=== PATIENT | female | born 1980 | race Caucasian/White ===

== ENCOUNTER 2019-09-04 13:11 | Inpatient (IN) | payer BC ==
[~2019-09-04] VITALS: Ht 157.5 cm; Wt 72.6 kg
--- NOTE | 2019-09-04 13:35 | NUR ---
ED Nurse Note: patient walked into ED from home c/o pain on the lower abdomen and back pain, patient reports she got uterine fibroid embolization on 09/02/19. fredrickt reports the pain got worse since last night, reports 01/02. patient is alert awake x4 ambulatory breathing unlabored and even, speaking in full sentences.
--- NOTE | 2019-09-04 13:39 | Emergency Room Report ---
History of Present Illness General Chief Complaint: To Be Triaged Present Illness HPI 39 YO female presents to the ED complaining of 10 out of 10 in severity progressive pain in the low back as well as abdomen. Patient is status post fibroid surgery for Fibroid embolectomy surgery 2 days ago. Patient reports she has been taking prescribed oxycodone on without any relief of her symptoms. Patient reports pain medication began being ineffective last night. She also is reporting constipation and states that her last bowel movement was prior to surgery. She endorses not having a BM since. She reports palpation as well as going from laying to sitting position exacerbates her symptoms. She denies fevers or chills. She denies significant past medical history she denies any allergies. She is not taking any other medications other than those prescribed to her for pain. Allergies: Coded Allergies: No Known Allergies (Unverified , 09/04/19) Patient History Past Medical History: see triage record Past Surgical History: other - fibroid embolectomy Pertinent Family History: none Now: No Reviewed Nursing Documentation: PMH: Agreed; PSxH: Agreed Review of Systems All Other Systems: negative except mentioned in HPI Physical Exam Sp02 EP Interpretation: reviewed, normal General Appearance: no apparent distress, alert, GCS 15, non-toxic Head: normocephalic, atraumatic Eyes: bilateral eye normal inspection, bilateral eye PERRL ENT: hearing grossly normal, normal voice Neck: full range of motion Respiratory: lungs clear, normal breath sounds, speaking full sentences Cardiovascular #1: regular rate, rhythm Gastrointestinal: normal bowel sounds, soft, guarding - mild guarding on palpation of the lower abdomen, tenderness - midline lower abdomen, Genitourinary: normal inspection, no CVA tenderness Musculoskeletal: normal range of motion, gait/station normal, tender - ttp paraspinal and midline lumbar region. Neurologic: alert, motor strength/tone normal, oriented x3, sensory intact, responsive, speech normal Psychiatric: judgement/insight normal Skin: no rash, normal color Medical Decision Making PA Attestation Dr. Springer is my supervising Physician whom patient management has been discussed with. ER Course 39 YO female presents to the ED complaining of 10 out of 10 in severity progressive pain in the low back as well as abdomen. Patient is status post fibroid surgery for Fibroid embolectomy surgery 2 days ago. Patient reports she has been taking prescribed oxycodone on without any relief of her symptoms. Patient reports pain medication began being ineffective last night. She also is reporting constipation and states that her last bowel movement was prior to surgery. She endorses not having a BM since. She reports palpation as well as going from laying to sitting position exacerbates her symptoms. She denies fevers or chills. She denies significant past medical history she denies any allergies. She is not taking any other medications other than those prescribed to her for pain. Ddx considered but are not limited to Post-op infection, Obstruction, UTI, hemorrhage, Diverticulitis, acute appendicitis, renal stone just to name a few. Vital signs: was slightly tachycardic at 103bpm, Normal BP. She has low grade fever of 100.6 H&PE are most consistent with uncontrollable post-op pain ORDERS: -CBC: WBC's 18k -CMP: normal Cr. - renal function is appropriate -Lactic Acid : * Elevated 2.2 -Blood Cultures: Pending - UA: Occasional bacteria no inflammatory marker increase -Urine Hcg: Negative --CT Abd & Pelvis without contrast : Canceled- Per Dr. Tamez ( Pt's surgeon ) , He is specifically requesting CT abdomen and Pelvis with Angio-Contrast ED INTERVENTIONS: - Tylenol 500mg PO - fever of 100.6 on arrival -- 1000NS + remaining 30cc/kg Bolus - IV zofran 4mg. -4mg Morphine IV - Unasyn 3gm IV DISPOSITION: at this time pt. will be admitted to Dr. Shukla for Post - operative infection. Dr. Shukla agreed to admit the pt. and to continue pt. care management. Labs Test 09/04/19 13:43 09/04/19 16:00 White Blood Count 18.1 K/UL (4.8-10.8) Red Blood Count 4.50 M/UL (4.20-5.40) Hemoglobin 13.5 G/DL (12.0-16.0) Hematocrit 42.0 % (37.0-47.0) Mean Corpuscular Volume 93 FL (80-99) Mean Corpuscular Hemoglobin 29.9 PG (27.0-31.0) Mean Corpuscular Hemoglobin Concent 32.1 G/DL (32.0-36.0) Red Cell Distribution Width 12.3 % (11.6-14.8) Platelet Count 282 K/UL (150-450) Mean Platelet Volume 7.9 FL (6.5-10.1) Neutrophils (%) (Auto) % (45.0-75.0) Lymphocytes (%) (Auto) % (20.0-45.0) Monocytes (%) (Auto) % (1.0-10.0) Eosinophils (%) (Auto) % (0.0-3.0) Basophils (%) (Auto) % (0.0-2.0) Differential Total Cells Counted 100 Neutrophils % (Manual) 82 % (45-75) Lymphocytes % (Manual) 9 % (20-45) Monocytes % (Manual) 9 % (1-10) Eosinophils % (Manual) 0 % (0-3) Basophils % (Manual) 0 % (0-2) Band Neutrophils 0 % (0-8) Platelet Estimate Adequate Platelet Morphology Normal Red Blood Cell Morphology Normal Urine Color Pale yellow Urine Appearance Clear Urine pH 7 (4.5-8.0) Urine Specific [place] 1.005 (1.005-1.035) Urine Protein 1+ (NEGATIVE) Urine Glucose (UA) 2+ (NEGATIVE) Urine Ketones Negative (NEGATIVE) Urine Blood 1+ (NEGATIVE) Urine Nitrite Negative (NEGATIVE) Urine Bilirubin Negative (NEGATIVE) Urine Urobilinogen Normal MG/DL (0.0-1.0) Urine Leukocyte Esterase Negative (NEGATIVE) Urine RBC 2-4 /HPF (0 - 2) Urine WBC 2-4 /HPF (0 - 2) Urine Squamous Epithelial Cells Few /LPF (NONE/OCC) Urine Bacteria Occasional /HPF (NONE) Urine HCG, Qualitative Negative (NEGATIVE) Sodium Level 135 MMOL/L (136-145) Potassium Level 4.2 MMOL/L (3.5-5.1) Chloride Level 97 MMOL/L (98-107) Carbon Dioxide Level 26 MMOL/L (21-32) Anion Gap 12 mmol/L (5-15) Blood Urea Nitrogen 3 mg/dL (7-18) Creatinine 0.9 MG/DL (0.55-1.30) Estimat Glomerular Filtration Rate > 60 mL/min (>60) Glucose Level 206 MG/DL (74-106) Calcium Level 9.9 MG/DL (8.5-10.1) Lactic Acid Level 1.80 mmol/L (0.66-2.22) CT/MRI/US Diagnostic Results CT/MRI/US Diagnostic Results : Impression "IMPRESSION: Abdominal aorta within limits without aneurysm or dissection. The celiac, SMA, renal arteries and ROMULO fill with contrast expected. Truncated, tapered appearance of the right internal iliac artery suggested approximately 3.5 cm from its origin axial 240 and coronal 99. 14 cm heterogeneous lesion in the lower abdomen and pelvis containing branching air and areas of faint high density may represent uterine fibroid and possible recent embolization, correlate with history. " Per official radiology report- Please see report for specific details. Disposition: ADMITTED INPATIENT Condition: Serious Aleta Fuchs Sep 04, 2019 13:39
[2019-09-04] MEDS ORDERED: Acetaminophen 500mg (ES) tab ORAL ONE (13:45)
[2019-09-04 13:58] VITALS: BP 125/106
--- NOTE | 2019-09-04 14:00 | Emergency Room Report ---
History of Present Illness General Chief Complaint: Abdominal Pain Source: Patient Present Illness Allergies: Coded Allergies: No Known Allergies (Unverified , 09/04/19) COVID-19 Screening Contact w/high risk pt: No Recent Travel to affected area: No Experienced COVID-19 symptoms?: No COVID-19 Testing performed AIR FILLER: No Patient History Now: No Nursing Documentation-[facility] Past Medical History: No History, Except For Physical Exam Vital Signs Date Time Temp Pulse Resp B/P (MAP) Pulse Ox O2 Delivery O2 Flow Rate FiO2 09/04/19 13:28 100.6 103 22 125/106 (112) 100 Room Air Medical Decision Making Diagnostic Impression: Primary Impression: Intractable abdominal pain ER Course Please refer to the initial note for the history exam and presentation I do agree with exam and work-up patient was evaluated by myself as well and does show significant discomfort to the Lower abdominal region Given the recent procedures performed imaging is obtained further blood work with pain medication initiated And patient will require further inpatient care Last Vital Signs Date Time Temp Pulse Resp B/P (MAP) Pulse Ox O2 Delivery O2 Flow Rate FiO2 09/04/19 13:58 100.6 102 22 125/106 100 Room Air Status: improved Disposition: ADMITTED INPATIENT Condition: Serious Referrals: NON PHYSICIAN (PCP) Breann Springer DO Sep 04, 2019 14:00
[2019-09-04] MEDS: Morphine Sulfate 4mg/ml Inj (IV USE ONLY) IVP ONE ×2 (14:04→16:11)
[2019-09-04 14:22] LABS: ANION GAP 12 mmol/L (5-15); BLOOD UREA NITROGEN 3 mg/dL (7-18); CALCIUM 9.9 MG/DL (8.5-10.1); CARBON DIOXIDE 26 MMOL/L (21-32); CHLORIDE 97 MMOL/L (98-107); CREATININE 0.9 MG/DL (0.55-1.30); POTASSIUM 4.2 MMOL/L (3.5-5.1); SODIUM 135 MMOL/L (136-145)
[2019-09-04 14:24] LABS: HEMOGLOBIN 13.5 G/DL (12.0-16.0); MEAN CORPUSCULAR VOLUME 93 FL (80-99); PLATELET COUNT 282 K/UL (150-450); RED CELL DISTRIBUTION WIDTH 12.3 % (11.6-14.8); WHITE BLOOD COUNT 18.1 K/UL (4.8-10.8)
[2019-09-04 14:27] LABS: APPEARANCE,URINE CLEAR; BILIRUBIN, URINE NEGATIVE (NEGATIVE); COLOR,URINE PALE YELLOW; GLUCOSE, URINE (UA) 2+ (NEGATIVE); KETONES,URINE NEGATIVE (NEGATIVE); LEUKOCYTE ESTERASE ,URINE NEGATIVE (NEGATIVE); NITRITE,URINE NEGATIVE (NEGATIVE); PH,URINE 7 (4.5-8.0); PROTEIN,URINE 1+ (NEGATIVE); UROBILINOGEN,URINE NORMAL MG/DL (0.0-1.0)
--- NOTE | 2019-09-04 14:37 | NUR ---
Todd youssef in EDM - 09/04/19 at 1438 by BRITTA ED Nurse Note: patient taken to CT scan
[2019-09-04] MEDS ORDERED: Sodium Chloride 2,200 ML IVLG ONE (14:45)
[2019-09-04] MEDS ORDERED: Omnipaque 350 100ml vial INJ PRN (14:45)
[2019-09-04] MEDS ORDERED: Ampicillin/Sulbactam Sod 3 GM in NS 110 ML IV ONE (14:45)
[2019-09-04] MEDS ORDERED: no home meds (14:54)
--- NOTE | 2019-09-04 15:49 | NUR ---
ED Nurse Note: patient taken to CT scan
[2019-09-04] MEDS ORDERED: Morphine Sulfate 4mg/ml Inj (IV USE ONLY) ONE (16:10)
--- NOTE | 2019-09-04 16:41 | NUR ---
ED Nurse Note: patient taken back from CT scan
--- NOTE | 2019-09-04 17:25 | NUR ---
ED Nurse Note: patient taken to 3E in wheelchair with Demetrio Turpin with all of her belongings. report given to Mady WHITLOCK.
[2019-09-04 17:48] VITALS: BP 144/93
--- NOTE | 2019-09-04 17:50 | NUR ---
NURSE NOTES: I received telephone report from KAMLESH Feldman from ED; patient awake, alert x4; on room air, no sing of distress and shortness of breath; no sing of chest pain; IV LAC and RAC 20G flushes well; belongings listed and crossed matched; side rials up x2, breaks engaged, bed at lowest position, call light within reach; will keep monitoring.
--- NOTE | 2019-09-04 17:53 | NUR ---
NURSE NOTES: I received order from MD Turner; order carried out as order given;
--- NOTE | 2019-09-04 17:56 | Diagnostic Imaging Report ---
History: PAIN Exam: CTA ABDOMEN + PELVIS With Contrast MIP images obtained Technique more: CTDI is 7.30 mGy and DLP is 407.70 mGy-cm. Technique more: One or more of the following dose reduction techniques were used: automated exposure control, adjustment of the mA and/or kV according to patient size, use of iterative reconstruction technique. Comparison: FINDINGS: Lung bases are clear. Abdominal aorta within limits without aneurysm or dissection. The celiac, SMA, renal arteries and ROMULO fill with contrast expected. Incidental note of a retroaortic left renal vein. The bilateral common and external iliacs are patent. Left internal iliac appears patent. Truncated, tapered appearance of the right internal iliac artery suggested approximately 3.5 cm from its origin axial 240 and coronal 99. 14 cm heterogeneous lesion in the lower abdomen and pelvis containing branching air and areas of faint high density may represent uterine fibroid, correlate with history. Abdominal solid organs and abdominal aorta appear within limits on early arterial phase imaging. No bowel dilation or free air. Normal caliber appendix without secondary signs. No free fluid. IMPRESSION: Abdominal aorta within limits without aneurysm or dissection. The celiac, SMA, renal arteries and ROMULO fill with contrast expected. Truncated, tapered appearance of the right internal iliac artery suggested approximately 3.5 cm from its origin axial 240 and coronal 99. 14 cm heterogeneous lesion in the lower abdomen and pelvis containing branching air and areas of faint high density may represent uterine fibroid and possible recent embolization, correlate with history.
--- NOTE | 2019-09-04 18:08 | NUR ---
NURSE NOTES: I communicated MD Shukla to get order for antibiotics for this patient; waiting for order.
--- NOTE | 2019-09-04 18:13 | NUR ---
NURSE NOTES: Order received from MD Shukla; carried out as order given;
--- NOTE | 2019-09-04 19:20 | NUR ---
HAND-OFF: Report given to KAMLESH Nguyen. Plan of care endorsed to incoming nurse; Also admission intervations endorsed to incoming nurse;
--- NOTE | 2019-09-04 19:28 | NUR ---
NURSE NOTES: Report received from KAMLESH Valdes. Patient in stable condition. Denies any pain as of the moment. Pain well controlled with current pain management. Will follow up.
[2019-09-04 20:00] VITALS: BP 115/71
[2019-09-04] MEDS ORDERED: Docusate 100mg cap ORAL PRN (20:15)
[2019-09-04] MEDS: Potassium Chloride 20 MEQ in Dextrose 5%/Lactated Ringer's 1,000 ML IV SCH (20:18)
[2019-09-04] MEDS: Zoysn 3.37gm in NS 100ML IVPB SCH (22:55)
[2019-09-04 23:59] VITALS: BP 112/73
[2019-09-05] VITALS: BP 112/73
[2019-09-05] MEDS: Potassium Chloride 20 MEQ in Dextrose 5%/Lactated Ringer's 1,000 ML IV SCH ×4 (01:44→22:49)
[2019-09-05 04:00] VITALS: BP 108/65
[2019-09-05] MEDS: Zoysn 3.37gm in NS 100ML IVPB SCH ×3 (05:39→22:48)
[2019-09-05 07:13] LABS: ALANINE AMINOTRANSFERASE 18 U/L (12-78); ALBUMIN 3.6 G/DL (3.4-5.0); ALBUMIN/GLOBULIN RATIO 0.7 (1.0-2.7); ALKALINE PHOSPHATASE 70 U/L (46-116); ANION GAP 11 mmol/L (5-15); ASPARTATE AMINO TRANSFERASE 17 U/L (15-37); BILIRUBIN,TOTAL 1.1 MG/DL (0.2-1.0); BLOOD UREA NITROGEN 3 mg/dL (7-18); CALCIUM 9.5 MG/DL (8.5-10.1); CARBON DIOXIDE 27 MMOL/L (21-32); CHLORIDE 97 MMOL/L (98-107); POTASSIUM 4.3 MMOL/L (3.5-5.1); SODIUM 135 MMOL/L (136-145)
[2019-09-05 07:14] LABS: HEMATOCRIT 38.2 % (37.0-47.0); HEMOGLOBIN 12.7 G/DL (12.0-16.0); MEAN CORPUSCULAR VOLUME 91 FL (80-99); PLATELET COUNT 216 K/UL (150-450); RED BLOOD COUNT 4.22 M/UL (4.20-5.40); RED CELL DISTRIBUTION WIDTH 10.8 % (11.6-14.8); WHITE BLOOD COUNT 20.5 K/UL (4.8-10.8)
--- NOTE | 2019-09-05 07:14 | NUR ---
NURSE NOTES: Report received from Cory WHITLOCK, rounds made. Patient sleeping. IVF infusing to RAC. No distress on RA. Respirations even/unlabored. Bed in lowest position, call light in reach, will continue to monitor.
[2019-09-05 07:16] LABS: BILIRUBIN,DIRECT 0.2 MG/DL (0.0-0.3)
--- NOTE | 2019-09-05 07:23 | NUR ---
HAND-OFF: Report given to KAMLESH Barrios. Patient in stable condition.
--- NOTE | 2019-09-05 07:35 | History and Physical ---
Potter Billie TAX ASSISTANT 09/05/19 0735: History of Present Illness General Date patient seen: Sep 05, 2019 Time patient seen: 07:00 Reason for Hospitalization: post op pain Present Illness HPI 39 years old female with past medical history of uterine fibroids , undergone uterine embolization 3 days ago, on Friday 09/01 Patient presented to emergency room with intractable abdominal pain as well as the low back pain. Patient reported taking oral analgesic without significant relief. She also reported constipation , and her last bowel movement was prior to surgery. No fever or chills. No cough, no congestion. Upon evaluation patient had leukocytosis WBC 18.1, stable hemoglobin , hematocrit and platelet count. Urinalysis revealed borderline pyuria and just occasional bacteria. Urine test was negative. Stable electrolytes and renal parameters. Lactic acid 1.8. CT scan of the abdomen and pelvis revealed findings consistent with recent embolization. In emergency department patient was medicated for pain, started on the IV fluids, antiemetic and admitted to medical surgical floor for further management. Low grade fever overnight, currently afebrile, WBC with small trend up to 20 this am c/o intermittent abd pain, had very small BM this am Allergies: Coded Allergies: No Known Allergies (Unverified , 09/04/19) COVID-19 Screening Contact w/high risk pt: No Recent Travel to affected area: No Experienced COVID-19 symptoms?: No Medication History Miscellaneous Medications [no home meds], (Reported) Patient History Healthcare decision maker Resuscitation status Advanced Directive on File Review of Systems Constitutional: Reports: weakness Eye: Reports: no symptoms ENT: Reports: no symptoms Respiratory: Reports: no symptoms Cardiovascular: Reports: no symptoms Gastrointestinal: Reports: constipation Genitourinary: Reports: see HPI Musculoskeletal: Reports: back pain Skin: Reports: no symptoms Psychiatric: Reports: no symptoms Neurological: Reports: no symptoms Endocrine: Reports: no symptoms Hematologic/Lymphatic: Reports: no symptoms Physical Exam General Appearance: no apparent distress Lines, tubes and drains: peripheral HEENT: normocephalic, atraumatic, anicteric, mucous membranes moist, PERRL Neck: non-tender, supple Respiratory/Chest: chest wall non-tender, lungs clear, no respiratory distress , no accessory muscle use Cardiovascular/Chest: normal peripheral pulses, normal rate Abdomen: normal bowel sounds - tenderness on palpation right lwoer quadrant, no guarding, no rebound, Extremities: normal range of motion, non-tender, no calf tenderness, normal capillary refill 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6 102 22 125/106 100 Room Air 09/04/19 13:41 103 22 Room Air 09/04/19 13:28 100.6 103 22 125/106 (112) 100 Room Air Intake and Output 09/04/19 09/05/19 19:00 07:00 Intake Total 800 ml Balance 800 ml Intake Oral 800 ml # Voids 5 # Bowel Movements 3 Laboratory Tests Test 09/04/19 13:43 09/04/19 16:00 09/05/19 05:30 White Blood Count 18.1 K/UL (4.8-10.8) H 20.5 K/UL (4.8-10.8) H Red Blood Count 4.50 M/UL (4.20-5.40) 4.22 M/UL (4.20-5.40) Hemoglobin 13.5 G/DL (12.0-16.0) 12.7 G/DL (12.0-16.0) Hematocrit 42.0 % (37.0-47.0) 38.2 % (37.0-47.0) Mean Corpuscular Volume 93 FL (80-99) 91 FL (80-99) Mean Corpuscular Hemoglobin 29.9 PG (27.0-31.0) 30.2 PG (27.0-31.0) Mean Corpuscular Hemoglobin Concent 32.1 G/DL (32.0-36.0) 33.3 G/DL (32.0-36.0) Red Cell Distribution Width 12.3 % (11.6-14.8) 10.8 % (11.6-14.8) L Platelet Count 282 K/UL (150-450) 216 K/UL (150-450) Mean Platelet Volume 7.9 FL (6.5-10.1) 7.7 FL (6.5-10.1) Neutrophils (%) (Auto) % (45.0-75.0) % (45.0-75.0) Lymphocytes (%) (Auto) % (20.0-45.0) % (20.0-45.0) Monocytes (%) (Auto) % (1.0-10.0) % (1.0-10.0) Eosinophils (%) (Auto) % (0.0-3.0) % (0.0-3.0) Basophils (%) (Auto) % (0.0-2.0) % (0.0-2.0) Differential Total Cells Counted 100 Neutrophils % (Manual) 82 % (45-75) H Pending Lymphocytes % (Manual) 9 % (20-45) L Pending Monocytes % (Manual) 9 % (1-10) Eosinophils % (Manual) 0 % (0-3) Basophils % (Manual) 0 % (0-2) Band Neutrophils 0 % (0-8) Platelet Estimate Adequate Pending Platelet Morphology Normal Pending Red Blood Cell Morphology Normal Urine Color Pale yellow Urine Appearance Clear Urine pH 7 (4.5-8.0) Urine Specific [place] 1.005 (1.005-1.035) Urine Protein 1+ (NEGATIVE) H Urine Glucose (UA) 2+ (NEGATIVE) H Urine Ketones Negative (NEGATIVE) Urine Blood 1+ (NEGATIVE) H Urine Nitrite Negative (NEGATIVE) Urine Bilirubin Negative (NEGATIVE) Urine Urobilinogen Normal MG/DL (0.0-1.0) Urine Leukocyte Esterase Negative (NEGATIVE) Urine RBC 2-4 /HPF (0 - 2) H Urine WBC 2-4 /HPF (0 - 2) Urine Squamous Epithelial Cells Few /LPF (NONE/OCC) Urine Bacteria Occasional /HPF (NONE) Urine HCG, Qualitative Negative (NEGATIVE) Sodium Level 135 MMOL/L (136-145) L 135 MMOL/L (136-145) L Potassium Level 4.2 MMOL/L (3.5-5.1) 4.3 MMOL/L (3.5-5.1) Chloride Level 97 MMOL/L (98-107) L 97 MMOL/L (98-107) L Carbon Dioxide Level 26 MMOL/L (21-32) 27 MMOL/L (21-32) Anion Gap 12 mmol/L (5-15) 11 mmol/L (5-15) Blood Urea Nitrogen 3 mg/dL (7-18) L 3 mg/dL (7-18) L Creatinine 0.9 MG/DL (0.55-1.30) 1.0 MG/DL (0.55-1.30) Estimat Glomerular Filtration Rate > 60 mL/min (>60) > 60 mL/min (>60) Glucose Level 206 MG/DL (74-106) H 197 MG/DL (74-106) H Lactic Acid Level 2.20 mmol/L (0.4-2.0) H 1.80 mmol/L (0.66-2.22) Calcium Level 9.9 MG/DL (8.5-10.1) 9.5 MG/DL (8.5-10.1) Total Bilirubin 1.1 MG/DL (0.2-1.0) H Direct Bilirubin 0.2 MG/DL (0.0-0.3) Aspartate Amino Transf (AST/SGOT) 17 U/L (15-37) Alanine Aminotransferase (ALT/SGPT) 18 U/L (12-78) Alkaline Phosphatase 70 U/L (46-116) Total Protein 8.5 G/DL (6.4-8.2) H Albumin 3.6 G/DL (3.4-5.0) Globulin 4.9 g/dL Albumin/Globulin Ratio 0.7 (1.0-2.7) L Height (Feet): 5 Height (Inches): 2.00 Weight (Pounds): 160 Medications Current Medications Medications (Trade) Dose Ordered Sig/Dc Route PRN Reason Start Time Stop Time Status Last Admin Dose Admin Acetaminophen (Tylenol) 650 mg Q4H PRN ORAL Temp >100.5 09/04/19 23:30 10/04/19 23:29 09/04/19 23:35 Bisacodyl (Dulcolax) 10 mg ONCE RECTAL 09/04/19 20:30 12/03/19 20:29 09/04/19 20:33 Docusate Sodium (Colace) 200 mg Q8H PRN ORAL Constipation 09/04/19 20:15 10/04/19 20:14 09/04/19 23:48 Hydromorphone HCl (Dilaudid) 1 mg Q3H PRN IVP Mild Pain (Pain Scale 1-3) 09/04/19 18:00 09/11/19 17:59 Hydromorphone HCl (Dilaudid) 2 mg Q2H PRN IVP Severe Pain (Pain Scale 7-10) 09/04/19 18:00 09/11/19 17:59 09/05/19 04:40 Hydromorphone HCl (Dilaudid) 2 mg Q3H PRN IVP Moderate Pain (Pain Scale 4-6) 09/04/19 18:00 09/11/19 17:59 Iohexol (Omnipaque 350 100ml) 100 ml NOW PRN INJ Radiology Procedure 09/04/19 14:45 09/06/19 14:45 Ondansetron HCl (Zofran) 4 mg Q6H PRN IVP Nausea & Vomiting 09/04/19 18:00 10/04/19 17:59 Piperacillin Sod/ Tazobactam Sod 3.375 gm/Sodium Chloride 110 ml @ 27.5 mls/hr EVERY 8 HOURS IVPB 09/04/19 22:00 09/09/19 21:59 09/05/19 05:39 Potassium Chloride 20 meq/ Dextrose/Lactated Ringer's 1,010 ml @ 150 mls/hr Q6H44M IV 09/04/19 19:00 10/04/19 18:59 09/04/19 20:18 Assessment/Plan Assessment/Plan: ASSESSMENT Intractable abdominal pain s/p recent uterine artery embolization Uterine fibroids Leukocytosis Constipation PLAN OF CARE MS floor IVF empiric abx fup with cx trend WBC CT scan A/P stable CL diet advance tomorrow if stable pain management bowel regimen, will give lactulose x 1 a/emetic prn OOB as tolerated IS at the bedside supportive care case discussed and evaluated by supervising physician Valerio Ivy MD 09/05/19 1616: History of Present Illness General Reason for Hospitalization: post op pain Present Illness Allergies: Coded Allergies: No Known Allergies (Unverified , 09/04/19) Medication History Miscellaneous Medications [no home meds], (Reported) Assessment/Plan Assessment/Plan: Patient seen and examined with TAX ASSISTANT. Agree with above A&P as it reflects our joint deliberations. Billie Potter NP Sep 05, 2019 07:35 Valerio Ivy MD Sep 05, 2019 16:16
[2019-09-05 08:20] VITALS: BP 150/98
--- NOTE | 2019-09-05 09:15 | NUR ---
NURSE NOTES: Spoke to Dr. Jaeger regarding patient current status, reviewed labs, vitals, medications, diet. No further orders at this time.
--- NOTE | 2019-09-05 10:15 | NUR ---
NURSE NOTES: Spoke to Dr. Jaeger regarding patient current diet and tolerance, order received, okay for coffee and prune juice, patient updated, verbalized understanding.
[2019-09-05] MEDS ORDERED: Lactulose 20gm/30ml UDC ORAL SCH (10:30)
--- NOTE | 2019-09-05 10:41 | General Surgery Progress Note ---
General Surgery-Progress Note Subjective Day of Surgery: september 01 Procedure Performed uterine fibroid embolization Symptoms: improved, tolerating diet, voiding well, BM Objective Last 24 Hour Vital Signs Date Time Temp Pulse Resp B/P (MAP) Pulse Ox O2 Delivery O2 Flow Rate FiO2 09/05/19 08:20 98.7 117 22 150/98 (115) 98 09/05/19 05:10 98.6 09/05/19 04:00 98.6 93 18 108/65 (79) 100 09/05/19 00:10 Room Air 09/05/19 00:05 97.4 09/05/19 00:00 100.4 86 20 112/73 (86) 96 09/04/19 23:59 100.4 86 20 112/73 (86) 96 09/04/19 20:22 Room Air 09/04/19 20:00 98.9 109 20 115/71 (86) 99 09/04/19 17:48 98.6 144/93 (110) 100 09/04/19 17:27 100.0 102 22 125/106 100 Room Air 09/04/19 17:06 100.0 09/04/19 16:07 100.0 09/04/19 13:58 100.6 102 22 125/106 100 Room Air 09/04/19 13:41 103 22 Room Air 09/04/19 13:28 100.6 103 22 125/106 (112) 100 Room Air I&O Intake and Output 09/04/19 09/05/19 19:00 07:00 Intake Total 800 ml Balance 800 ml Intake Oral 800 ml # Voids 5 # Bowel Movements 3 Dressing: dry Wound: clean Drains: none Cardiovascular: RSR Respiratory: clear Abdomen: soft, flat, tenderness, present bowel sounds Extremities: no edema, no tenderness, no cyanosis Laboratory Tests Test 09/04/19 13:43 09/04/19 16:00 09/05/19 05:30 White Blood Count 18.1 K/UL (4.8-10.8) H 20.5 K/UL (4.8-10.8) H Red Blood Count 4.50 M/UL (4.20-5.40) 4.22 M/UL (4.20-5.40) Hemoglobin 13.5 G/DL (12.0-16.0) 12.7 G/DL (12.0-16.0) Hematocrit 42.0 % (37.0-47.0) 38.2 % (37.0-47.0) Mean Corpuscular Volume 93 FL (80-99) 91 FL (80-99) Mean Corpuscular Hemoglobin 29.9 PG (27.0-31.0) 30.2 PG (27.0-31.0) Mean Corpuscular Hemoglobin Concent 32.1 G/DL (32.0-36.0) 33.3 G/DL (32.0-36.0) Red Cell Distribution Width 12.3 % (11.6-14.8) 10.8 % (11.6-14.8) L Platelet Count 282 K/UL (150-450) 216 K/UL (150-450) Mean Platelet Volume 7.9 FL (6.5-10.1) 7.7 FL (6.5-10.1) Neutrophils (%) (Auto) % (45.0-75.0) % (45.0-75.0) Lymphocytes (%) (Auto) % (20.0-45.0) % (20.0-45.0) Monocytes (%) (Auto) % (1.0-10.0) % (1.0-10.0) Eosinophils (%) (Auto) % (0.0-3.0) % (0.0-3.0) Basophils (%) (Auto) % (0.0-2.0) % (0.0-2.0) Differential Total Cells Counted 100 Neutrophils % (Manual) 82 % (45-75) H Pending Lymphocytes % (Manual) 9 % (20-45) L Pending Monocytes % (Manual) 9 % (1-10) Eosinophils % (Manual) 0 % (0-3) Basophils % (Manual) 0 % (0-2) Band Neutrophils 0 % (0-8) Platelet Estimate Adequate Pending Platelet Morphology Normal Pending Red Blood Cell Morphology Normal Urine Color Pale yellow Urine Appearance Clear Urine pH 7 (4.5-8.0) Urine Specific [place] 1.005 (1.005-1.035) Urine Protein 1+ (NEGATIVE) H Urine Glucose (UA) 2+ (NEGATIVE) H Urine Ketones Negative (NEGATIVE) Urine Blood 1+ (NEGATIVE) H Urine Nitrite Negative (NEGATIVE) Urine Bilirubin Negative (NEGATIVE) Urine Urobilinogen Normal MG/DL (0.0-1.0) Urine Leukocyte Esterase Negative (NEGATIVE) Urine RBC 2-4 /HPF (0 - 2) H Urine WBC 2-4 /HPF (0 - 2) Urine Squamous Epithelial Cells Few /LPF (NONE/OCC) Urine Bacteria Occasional /HPF (NONE) Urine HCG, Qualitative Negative (NEGATIVE) Sodium Level 135 MMOL/L (136-145) L 135 MMOL/L (136-145) L Potassium Level 4.2 MMOL/L (3.5-5.1) 4.3 MMOL/L (3.5-5.1) Chloride Level 97 MMOL/L (98-107) L 97 MMOL/L (98-107) L Carbon Dioxide Level 26 MMOL/L (21-32) 27 MMOL/L (21-32) Anion Gap 12 mmol/L (5-15) 11 mmol/L (5-15) Blood Urea Nitrogen 3 mg/dL (7-18) L 3 mg/dL (7-18) L Creatinine 0.9 MG/DL (0.55-1.30) 1.0 MG/DL (0.55-1.30) Estimat Glomerular Filtration Rate > 60 mL/min (>60) > 60 mL/min (>60) Glucose Level 206 MG/DL (74-106) H 197 MG/DL (74-106) H Lactic Acid Level 2.20 mmol/L (0.4-2.0) H 1.80 mmol/L (0.66-2.22) Calcium Level 9.9 MG/DL (8.5-10.1) 9.5 MG/DL (8.5-10.1) Total Bilirubin 1.1 MG/DL (0.2-1.0) H Direct Bilirubin 0.2 MG/DL (0.0-0.3) Aspartate Amino Transf (AST/SGOT) 17 U/L (15-37) Alanine Aminotransferase (ALT/SGPT) 18 U/L (12-78) Alkaline Phosphatase 70 U/L (46-116) Total Protein 8.5 G/DL (6.4-8.2) H Albumin 3.6 G/DL (3.4-5.0) Globulin 4.9 g/dL Albumin/Globulin Ratio 0.7 (1.0-2.7) L Imaging likely post embolization syndrome, no signs of infection Plan Additional Comments patient still constipated, need laxative therapy. continue current pain control for today Casey Jaeger MD Sep 05, 2019 10:41
--- NOTE | 2019-09-05 11:36 | NUR ---
CASE MANAGEMENT: INITIAL REVIEW 39YR OLD MALE WALKED INTO ED FROM HOME CC: ABDOMINAL PAIN; S/P UTERINE FIBROID EMBOLIZATION 09/02/19 SI:INTRACTABLE ABDOMINAL PAIN 100.6 103 22 125/106 100% ON RA WBC 18.1 BG 206 LACTIC ACID 2.20 IS:IV NS BOLUS X1 IV MORPHINE SULFATE X1 IV ZOFRAN X1 TYLENOL PO X1 CTA Abdomen Pelvis w/Contrast: PAIN-Abdominal aorta within limits without aneurysm or dissection. \: [facility] UNIT DCP: HOME WHEN STABLE PLAN: CONTROL PAIN START ON CLEAR; ADVANCE TOLERATED [employer]OURAGE INCENTIVE SPIROMETER CASE MANAGEMENT: REVIEW 09/05/19 SI:INTRACTABLE ABDOMINAL PAIN 100.4 86 20 112/73 96% ON RA WBC 20.5 BG 197 T. PROTEIN 8.5 IS:IV ZOSYN TID IV KCL/D5/LR @150ML/HR TYLENOL PO Q4HR/PRN \: [facility] MED SURG UNIT DCP: HOME WHEN STABLE PLAN: CONTROL PAIN START ON CLEAR; ADVANCE TOLERATED ENCOURAGE INCENTIVE SPIROMETER
[2019-09-05 12:00] VITALS: BP 112/70
--- NOTE | 2019-09-05 12:45 | NUR ---
NURSE NOTES: Spoke to Dr. Jaeger regarding patient complains of pressure with voiding, vitals, activity level. No further orders. Encouraged IS, patient demonstrates correctly.
--- NOTE | 2019-09-05 14:23 | NUR ---
*-* INSURANCE *-* ALL CLINICALS AND REVIEWS HAVE BEEN FAXED TO: CARISSA ALLISON AUTH#[id number] [phone] F:[phone] Addendum: 09/08/19 at 1539 by ANYA MARQUEZ CM REFAXED
[2019-09-05] MEDS: HYDROmorphone 1mg/ml Carpuject IVP PRN ×2 (15:16→21:04)
[2019-09-05] MEDS ORDERED: Bisacodyl EC 5mg tab ORAL PRN (16:15)
[2019-09-05 16:31] VITALS: BP 113/71
--- NOTE | 2019-09-05 16:45 | NUR ---
NURSE NOTES: Dr. Ivy at bedside, discussed patient current status, vitals (temperature 102.2-99.4, HR 114-119), IVF/PO medications reviewed, BM x2 this shift (diarrheal), no further orders.
--- NOTE | 2019-09-05 17:00 | NUR ---
NURSE NOTES: Patient up ambulating in halls (twice this shift), gait steady/slow.
[2019-09-05] MEDS: Docusate 100mg cap ORAL SCH (17:50)
--- NOTE | 2019-09-05 18:00 | NUR ---
NURSE NOTES: Patient reports scant bleeding with voiding, provided rafael-pad, will endorse to next shift.
--- NOTE | 2019-09-05 19:19 | NUR ---
HAND-OFF: Report given to Gho RN, rounds made, patient stable.
--- NOTE | 2019-09-05 19:30 | NUR ---
NURSE NOTES: Receive a report from KAMLESH Barrios. Round is done. Pt is awake and alert. No acute distress noted but still noted lower abdominal pain. Pain medication will provide prn pain medication as ordered. Pt feels weak but no dizziness noted. Provide fall precautions. Call light within reach. Will continue to monitor.
[2019-09-05 20:00] VITALS: BP 109/73
--- NOTE | 2019-09-05 21:30 | NUR ---
NURSE NOTES: Pt had normal BM but still wants to have Bisacodyl suppository. BS increased. Noted pain and hard time to move. Assist to use bathroom. Call light within reach. Will continue to monitor.
[2019-09-06] VITALS: BP 117/75
[2019-09-06 04:00] VITALS: BP 104/66
[2019-09-06 06:01] LABS: HEMATOCRIT 33.4 % (37.0-47.0); HEMOGLOBIN 11.1 G/DL (12.0-16.0); MEAN CORPUSCULAR VOLUME 91 FL (80-99); PLATELET COUNT 204 K/UL (150-450); RED BLOOD COUNT 3.69 M/UL (4.20-5.40); RED CELL DISTRIBUTION WIDTH 10.5 % (11.6-14.8)
[2019-09-06 06:08] LABS: WHITE BLOOD COUNT 22.4 K/UL (4.8-10.8)
--- NOTE | 2019-09-06 06:09 | NUR ---
NURSE'S NOTES: CRITICAL VALUE RESULT FOR WBC OF 22.4 RECEIVED FROM [facility] AT 0608; RELAYED RESULT TO KAMLESH ZARAGOZA AT 0609.
--- NOTE | 2019-09-06 06:12 | NUR ---
NURSE NOTES: Call to Dr. Shukla for critical lab value and waiting for call-back. Will continue to follow up.
[2019-09-06 06:17] LABS: ALANINE AMINOTRANSFERASE 18 U/L (12-78); ALBUMIN 2.7 G/DL (3.4-5.0); ALBUMIN/GLOBULIN RATIO 0.6 (1.0-2.7); ALKALINE PHOSPHATASE 73 U/L (46-116); ANION GAP 6 mmol/L (5-15); ASPARTATE AMINO TRANSFERASE 14 U/L (15-37); BLOOD UREA NITROGEN 2 mg/dL (7-18); CALCIUM 8.8 MG/DL (8.5-10.1); CARBON DIOXIDE 28 MMOL/L (21-32); CHLORIDE 98 MMOL/L (98-107); POTASSIUM 4.4 MMOL/L (3.5-5.1); SODIUM 131 MMOL/L (136-145)
[2019-09-06] MEDS: Potassium Chloride 20 MEQ in Dextrose 5%/Lactated Ringer's 1,000 ML IV SCH ×4 (06:23→23:32)
[2019-09-06] MEDS: Zoysn 3.37gm in NS 100ML IVPB SCH ×3 (06:23→22:02)
--- NOTE | 2019-09-06 06:30 | NUR ---
NURSE NOTES: Rechecked BT: 101.3. No chilling or febrile sensation. Given Tylenol 650mg po.
--- NOTE | 2019-09-06 07:30 | NUR ---
HAND-OFF: Report given to KAMLESH Prakash. Round is done. Pt is using bathroom. Endorse about critical lab value to follow up.
[2019-09-06 08:00] VITALS: BP 115/78
--- NOTE | 2019-09-06 08:00 | NUR ---
NURSE NOTES: Received report from Ashleigh RN, pt a/a/o x4 laying in bed with no signs of distress or other issues at this time. surgical site with steri-strips and Tegaderm, soiled. is aware and stated no need to be changed at this time. right AC gauge #20 heplock and right FA gauge#22 running D5 LR+20mEq@150ml/hr. pt is able to pass flatus and to have BM this morning. pt able to ambulate to the bathroom. call light within reach, bed in lowest position. side rales up x2. I will f/u as needed.
--- NOTE | 2019-09-06 08:10 | Pulmonology Progress Note ---
Billie Potter WINK CUTTER OPERATOR 09/06/19 0810: Subjective Allergies: Coded Allergies: No Known Allergies (Unverified , 09/04/19) Subjective Low-grade fever Leukocytosis trending up Had BM Still significant abd pain controlle with q 2 hr analgesics Objective Last 24 Hour Vital Signs Date Time Temp Pulse Resp B/P (MAP) Pulse Ox O2 Delivery O2 Flow Rate FiO2 09/06/19 04:00 100.1 115 20 104/66 (79) 93 09/06/19 00:00 98.8 117 20 117/75 (89) 98 09/05/19 21:00 Room Air 09/05/19 20:00 98.7 111 20 109/73 (85) 100 09/05/19 18:00 100.1 09/05/19 16:50 99.4 09/05/19 16:35 100.7 09/05/19 16:31 102.2 119 20 113/71 (85) 99 09/05/19 16:00 Room Air 09/05/19 12:00 98.9 116 21 112/70 (84) 98 09/05/19 09:00 Room Air 09/05/19 08:20 98.7 117 22 150/98 (115) 98 Intake and Output 09/05/19 09/06/19 19:00 07:00 Intake Total 2650 ml 2550 ml Output Total 2000 ml 650 ml Balance 650 ml 1900 ml Intake Oral 1600 ml 1500 ml IV Total 1050 ml 1050 ml Output Urine Total 2000 ml 650 ml # Voids 7 6 # Bowel Movements 4 2 Objective General Appearance: no apparent distress Lines, tubes and drains: peripheral HEENT: normocephalic, atraumatic, anicteric, mucous membranes moist, PERRL Neck: non-tender, supple Respiratory/Chest: chest wall non-tender, lungs clear, no respiratory distress , no accessory muscle use Cardiovascular/Chest: normal peripheral pulses, normal rate Abdomen: normal bowel sounds - tenderness on palpation right lwoer quadrant, no guarding, no rebound, Extremities: normal range of motion, non-tender, no calf tenderness, normal capillary refill Neurologic: glost kiln operator II-XII grossly normal, no motor/sensory deficits, alert, oriented x 3, responsive Musculoskeletal: normal muscle bulk Microbiology Date/Time Source Procedure Growth Status 09/04/19 13:57 Blood Blood Culture - Preliminary NO GROWTH AFTER 24 HOURS Resulted 09/04/19 13:47 Blood Blood Culture - Preliminary NO GROWTH AFTER 24 HOURS Resulted Laboratory Tests 09/06/19 04:50: White Blood Count 22.4*H, Red Blood Count 3.69L, Hemoglobin 11.1L, Hematocrit 33.4L, Mean Corpuscular Volume 91, Mean Corpuscular Hemoglobin 30.2, Mean Corpuscular Hemoglobin Concent 33.4, Red Cell Distribution Width 10.5L, Platelet Count 204, Mean Platelet Volume 7.6, Neutrophils (%) (Auto) , Lymphocytes (%) (Auto) , Monocytes (%) (Auto) , Eosinophils (%) (Auto) , Basophils (%) (Auto) , Neutrophils % (Manual) [Pending], Lymphocytes % (Manual) [Pending], Platelet Estimate [Pending], Platelet Morphology [Pending], Sodium Level 131L, Potassium Level 4.4, Chloride Level 98, Carbon Dioxide Level 28, Anion Gap 6, Blood Urea Nitrogen 2L, Creatinine 1.0, Estimat Glomerular Filtration Rate > 60, Glucose Level 277H, Calcium Level 8.8, Total Bilirubin 1.0 , Aspartate Amino Transf (AST/SGOT) 14L, Alanine Aminotransferase (ALT/SGPT) 18 , Alkaline Phosphatase 73, Total Protein 7.1, Albumin 2.7L, Globulin 4.4, Albumin/Globulin Ratio 0.6L Current Medications Medications (Trade) Dose Ordered Sig/Dc Route PRN Reason Start Time Stop Time Status Last Admin Dose Admin Acetaminophen (Tylenol) 650 mg Q4H PRN ORAL Temp >100.5 09/04/19 23:30 10/04/19 23:29 09/06/19 06:29 Bisacodyl (Dulcolax) 5 mg DAILYPRN PRN ORAL Constipation 09/05/19 16:15 12/04/19 16:14 Bisacodyl (Dulcolax) 10 mg DAILYPRN PRN RECTAL Constipation 09/05/19 16:15 12/04/19 16:14 Bisacodyl (Dulcolax) 10 mg ONCE RECTAL 09/04/19 20:30 12/03/19 20:29 09/05/19 20:51 Docusate Sodium (Colace) 100 mg TWICE A DAY ORAL 09/05/19 18:00 10/05/19 17:59 Docusate Sodium (Colace) 200 mg Q8H PRN ORAL Constipation 09/04/19 20:15 10/04/19 20:14 09/04/19 23:48 Hydromorphone HCl (Dilaudid) 1 mg Q3H PRN IVP Mild Pain (Pain Scale 1-3) 09/04/19 18:00 09/11/19 17:59 09/05/19 21:04 Hydromorphone HCl (Dilaudid) 2 mg Q2H PRN IVP Severe Pain (Pain Scale 7-10) 09/04/19 18:00 09/11/19 17:59 09/06/19 02:59 Hydromorphone HCl (Dilaudid) 2 mg Q3H PRN IVP Moderate Pain (Pain Scale 4-6) 09/04/19 18:00 09/11/19 17:59 Iohexol (Omnipaque 350 100ml) 100 ml NOW PRN INJ Radiology Procedure 09/04/19 14:45 09/06/19 14:45 Ondansetron HCl (Zofran) 4 mg Q6H PRN IVP Nausea & Vomiting 09/04/19 18:00 10/04/19 17:59 Piperacillin Sod/ Tazobactam Sod 3.375 gm/Sodium Chloride 110 ml @ 27.5 mls/hr EVERY 8 HOURS IVPB 09/04/19 22:00 09/09/19 21:59 09/06/19 06:23 Potassium Chloride 20 meq/ Dextrose/Lactated Ringer's 1,010 ml @ 150 mls/hr Q6H44M IV 09/04/19 19:00 10/04/19 18:59 09/06/19 06:23 Assessment/Plan Assessment/Plan ASSESSMENT Intractable abdominal pain s/p recent uterine artery embolization Uterine fibroids Leukocytosis Constipation PLAN OF CARE MS floor IVF empiric abx fup with cx BCX NGTD WBC with small trend up, low grade fever CT scan A/P on admission stable CL diet advance tomorrow if stable pain management bowel regimen, s/p lactulose x 1 09/04 had BM yesterday and this am a/emetic prn OOB as tolerated IS at the bedside supportive care case discussed and evaluated by supervising physician Valerio Ivy MD 09/06/19 1545: Subjective Allergies: Coded Allergies: No Known Allergies (Unverified , 09/04/19) Assessment/Plan Assessment/Plan Patient seen and examined with WINK CUTTER OPERATOR. Agree with above A&P as it reflects our joint deliberations. Transition to oral pain meds. Overall better. Having BMs. HR better. Ambulating. Tolerating PO. Billie Potter NP Sep 06, 2019 08:10 Valerio Ivy MD Sep 06, 2019 15:45
--- NOTE | 2019-09-06 08:30 | NUR ---
NURSE NOTES: Billie CONTEH and DR. Ash are aware of WBC result of 22.4. I will f/u as needed.
[2019-09-06] MEDS: Docusate 100mg cap ORAL SCH ×2 (09:13→18:09)
[2019-09-06] MEDS: HYDROmorphone 1mg/ml Carpuject IVP PRN (09:14)
[2019-09-06 12:00] VITALS: BP 122/80
[2019-09-06] MEDS ORDERED: HYDROmorphone 1mg/ml Carpuject IVP PRN ×2 (12:30)
--- NOTE | 2019-09-06 14:40 | General Surgery Progress Note ---
General Surgery-Progress Note Subjective Procedure Performed uterine fibroid embolization Symptoms: improved, tolerating diet, voiding well, BM, pain decreased Objective Last 24 Hour Vital Signs Date Time Temp Pulse Resp B/P (MAP) Pulse Ox O2 Delivery O2 Flow Rate FiO2 09/06/19 13:29 99.2 09/06/19 09:44 99.2 09/06/19 07:00 99.2 09/06/19 04:00 100.1 115 20 104/66 (79) 93 09/06/19 00:00 98.8 117 20 117/75 (89) 98 09/05/19 21:00 Room Air 09/05/19 20:00 98.7 111 20 109/73 (85) 100 09/05/19 18:00 100.1 09/05/19 16:50 99.4 09/05/19 16:35 100.7 09/05/19 16:31 102.2 119 20 113/71 (85) 99 09/05/19 16:00 Room Air I&O Intake and Output 09/05/19 09/06/19 19:00 07:00 Intake Total 2650 ml 2550 ml Output Total 2000 ml 650 ml Balance 650 ml 1900 ml Intake Oral 1600 ml 1500 ml IV Total 1050 ml 1050 ml Output Urine Total 2000 ml 650 ml # Voids 7 6 # Bowel Movements 4 2 Dressing: dry Wound: clean Drains: none Cardiovascular: RSR Respiratory: clear Abdomen: soft, flat, scaphoid, tenderness, present bowel sounds Laboratory Tests Test 09/06/19 04:50 White Blood Count 22.4 K/UL (4.8-10.8) *H Red Blood Count 3.69 M/UL (4.20-5.40) L Hemoglobin 11.1 G/DL (12.0-16.0) L Hematocrit 33.4 % (37.0-47.0) L Mean Corpuscular Volume 91 FL (80-99) Mean Corpuscular Hemoglobin 30.2 PG (27.0-31.0) Mean Corpuscular Hemoglobin Concent 33.4 G/DL (32.0-36.0) Red Cell Distribution Width 10.5 % (11.6-14.8) L Platelet Count 204 K/UL (150-450) Mean Platelet Volume 7.6 FL (6.5-10.1) Neutrophils (%) (Auto) % (45.0-75.0) Lymphocytes (%) (Auto) % (20.0-45.0) Monocytes (%) (Auto) % (1.0-10.0) Eosinophils (%) (Auto) % (0.0-3.0) Basophils (%) (Auto) % (0.0-2.0) Differential Total Cells Counted 100 Neutrophils % (Manual) 80 % (45-75) H Lymphocytes % (Manual) 11 % (20-45) L Monocytes % (Manual) 9 % (1-10) Eosinophils % (Manual) 0 % (0-3) Basophils % (Manual) 0 % (0-2) Band Neutrophils 0 % (0-8) Platelet Estimate Adequate Platelet Morphology Normal Red Blood Cell Morphology Normal Sodium Level 131 MMOL/L (136-145) L Potassium Level 4.4 MMOL/L (3.5-5.1) Chloride Level 98 MMOL/L (98-107) Carbon Dioxide Level 28 MMOL/L (21-32) Anion Gap 6 mmol/L (5-15) Blood Urea Nitrogen 2 mg/dL (7-18) L Creatinine 1.0 MG/DL (0.55-1.30) Estimat Glomerular Filtration Rate > 60 mL/min (>60) Glucose Level 277 MG/DL (74-106) H Calcium Level 8.8 MG/DL (8.5-10.1) Total Bilirubin 1.0 MG/DL (0.2-1.0) Aspartate Amino Transf (AST/SGOT) 14 U/L (15-37) L Alanine Aminotransferase (ALT/SGPT) 18 U/L (12-78) Alkaline Phosphatase 73 U/L (46-116) Total Protein 7.1 G/DL (6.4-8.2) Albumin 2.7 G/DL (3.4-5.0) L Globulin 4.4 g/dL Albumin/Globulin Ratio 0.6 (1.0-2.7) L Plan Additional Comments attempt oral pain management, ambulate, advance diet. Casey Jaeger MD Sep 06, 2019 14:40
[2019-09-06 16:00] VITALS: BP 107/72
[2019-09-06] MEDS ORDERED: NS 275ml ONE (16:15)
[2019-09-06] MEDS ORDERED: Tubing IV Secondary IV ONE (16:15)
--- NOTE | 2019-09-06 19:30 | NUR ---
NURSE NOTES: Receive a report from KAMLESH Prakash. Pt is awake and alert. No acute distress noted. Pain is tolerating with new oral pain medication. Still pt needs time and guarding posture toward RLQ while ambulating and using bathroom but states that it gets better than yesterday. Pt is on her periods. Provide perineal care with pads. IV and ATB are running. Call light within reach. Will continue to monitor.
[2019-09-06 20:00] VITALS: BP 113/74
--- NOTE | 2019-09-06 20:00 | NUR ---
NURSE NOTES: Pt is ambulating in the unit with steady gait. No dizziness noted but feeling cold. Provide a towel to cover. BT checked as 98.8. Will continue to monitor.
[2019-09-07] VITALS: BP 95/65
[2019-09-07 04:00] VITALS: BP 101/65
[2019-09-07] MEDS: Zoysn 3.37gm in NS 100ML IVPB SCH ×3 (06:15→22:25)
--- NOTE | 2019-09-07 07:00 | NUR ---
NURSE NOTES: Pt had three times of pain medication overnight and tolerating well. Verbalizing feeling better. No acute distress noted. Will continue to monitor.
--- NOTE | 2019-09-07 07:15 | NUR ---
HAND-OFF: Report given to KAMLESH Prakash. Round is made.
[2019-09-07 08:00] VITALS: BP 95/58
--- NOTE | 2019-09-07 08:00 | Pulmonology Progress Note ---
Potter Billie SENIOR ORACLE DATABASE ADMINISTRATOR 09/07/19 0800: Subjective Allergies: Coded Allergies: No Known Allergies (Unverified , 09/04/19) All Systems: reviewed and negative except above Subjective postop pain controlled clinically with sign improvement fevers resolved still leuk WBC 21 Objective Last 24 Hour Vital Signs Date Time Temp Pulse Resp B/P (MAP) Pulse Ox O2 Delivery O2 Flow Rate FiO2 09/07/19 04:00 99.9 102 20 101/65 (77) 97 09/07/19 00:00 99.2 107 20 95/65 (75) 96 09/06/19 21:00 Room Air 09/06/19 20:00 98.8 118 20 113/74 (87) 99 09/06/19 16:39 99.2 09/06/19 16:00 99.3 114 20 107/72 (84) 100 09/06/19 12:00 98.0 111 18 122/80 (94) 98 09/06/19 09:44 99.2 09/06/19 09:00 Room Air 09/06/19 08:00 98.1 113 20 115/78 (90) 96 Intake and Output 09/06/19 09/07/19 19:00 07:00 Intake Total 400 ml 3100 ml Balance 400 ml 3100 ml Intake Oral 400 ml 1600 ml IV Total 1500 ml # Voids 3 7 # Bowel Movements 1 Objective General Appearance: no apparent distress Lines, tubes and drains: peripheral HEENT: normocephalic, atraumatic, anicteric, mucous membranes moist, PERRL Neck: non-tender, supple Respiratory/Chest: chest wall non-tender, lungs clear, no respiratory distress , no accessory muscle use Cardiovascular/Chest: normal peripheral pulses, normal rate Abdomen: normal bowel sounds - tenderness on palpation right lwoer quadrant, no guarding, no rebound, Extremities: normal range of motion, non-tender, no calf tenderness, normal capillary refill Neurologic: prosthetic aide II-XII grossly normal, no motor/sensory deficits, alert, oriented x 3, responsive Musculoskeletal: normal muscle bulk Microbiology Date/Time Source Procedure Growth Status 09/04/19 13:57 Blood Blood Culture - Preliminary NO GROWTH AFTER 48 HOURS Resulted 09/04/19 13:47 Blood Blood Culture - Preliminary NO GROWTH AFTER 48 HOURS Resulted Current Medications Medications (Trade) Dose Ordered Sig/Dc Route PRN Reason Start Time Stop Time Status Last Admin Dose Admin Acetaminophen (Tylenol) 650 mg Q4H PRN ORAL Temp >100.5 09/04/19 23:30 10/04/19 23:29 09/06/19 06:29 Bisacodyl (Dulcolax) 5 mg DAILYPRN PRN ORAL Constipation 09/05/19 16:15 12/04/19 16:14 Bisacodyl (Dulcolax) 10 mg DAILYPRN PRN RECTAL Constipation 09/05/19 16:15 12/04/19 16:14 Docusate Sodium (Colace) 100 mg TWICE A DAY ORAL 09/05/19 18:00 10/05/19 17:59 09/06/19 18:09 Docusate Sodium (Colace) 200 mg Q8H PRN ORAL Constipation 09/04/19 20:15 10/04/19 20:14 09/04/19 23:48 Hydromorphone HCl (Dilaudid) 1 mg Q2H PRN IVP moderate pain 09/06/19 12:30 09/13/19 12:29 Hydromorphone HCl (Dilaudid) 2 mg Q2H PRN IVP Severe Pain (Pain Scale 7-10) 09/06/19 12:30 09/11/19 17:59 Ondansetron HCl (Zofran) 4 mg Q6H PRN IVP Nausea & Vomiting 09/04/19 18:00 10/04/19 17:59 Oxycodone/ Acetaminophen (Percocet 10/325) 1 tab Q3H PRN ORAL pain 09/06/19 12:30 09/13/19 12:29 09/07/19 06:15 Piperacillin Sod/ Tazobactam Sod 3.375 gm/Sodium Chloride 110 ml @ 27.5 mls/hr EVERY 8 HOURS IVPB 09/04/19 22:00 09/09/19 21:59 09/07/19 06:15 Potassium Chloride 20 meq/ Dextrose/Lactated Ringer's 1,010 ml @ 150 mls/hr Q6H44M IV 09/04/19 19:00 10/04/19 18:59 09/06/19 23:32 Assessment/Plan Assessment/Plan ASSESSMENT Intractable abdominal pain s/p recent uterine artery embolization Uterine fibroids Leukocytosis Constipation PLAN OF CARE MS floor IVF empiric abx fup with cx BCX NGTD still leuk but clinically with sign improvement CT scan A/P on admission stable soft diet, tolerates had BM voiding w/out difficulties ambulates pain management with oral analgesics, controlled IS at the bedside supportive care case discussed and evaluated by supervising physician Valerio Ivy MD 09/07/19 1340: Subjective Allergies: Coded Allergies: No Known Allergies (Unverified , 09/04/19) Assessment/Plan Assessment/Plan Patient seen and examined with SENIOR ORACLE DATABASE ADMINISTRATOR. Agree with above A&P as it reflects our joint deliberations. Billie Potter SENIOR ORACLE DATABASE ADMINISTRATOR Sep 07, 2019 08:00 Valerio Ivy MD Sep 07, 2019 13:40
--- NOTE | 2019-09-07 08:18 | NUR ---
NURSE NOTES: Received report from Ashleigh RN, pt a/a/o x 4 laying in bed with no signs of distress or other issues at this time. pt's IV on the Right FA gauge#22 running D5LR+20 mEq@50ml/hr. pt is able to ambulate with steady gait. call light within reach, bed in lowest position. side rales up x2. I will f/u as needed.
[2019-09-07 08:33] LABS: HEMATOCRIT 33.6 % (37.0-47.0); HEMOGLOBIN 10.7 G/DL (12.0-16.0); MEAN CORPUSCULAR VOLUME 94 FL (80-99); PLATELET COUNT 281 K/UL (150-450); RED BLOOD COUNT 3.56 M/UL (4.20-5.40); RED CELL DISTRIBUTION WIDTH 12.6 % (11.6-14.8); WHITE BLOOD COUNT 21.9 K/UL (4.8-10.8)
[2019-09-07] MEDS: Docusate 100mg cap ORAL SCH ×2 (08:41→17:39)
[2019-09-07] MEDS: Potassium Chloride 20 MEQ in Dextrose 5%/Lactated Ringer's 1,000 ML IV SCH (08:42)
[2019-09-07 08:57] LABS: ALANINE AMINOTRANSFERASE 19 U/L (12-78); ALBUMIN 2.7 G/DL (3.4-5.0); ALBUMIN/GLOBULIN RATIO 0.6 (1.0-2.7); ALKALINE PHOSPHATASE 101 U/L (46-116); ANION GAP 9 mmol/L (5-15); ASPARTATE AMINO TRANSFERASE 17 U/L (15-37); BILIRUBIN,TOTAL 0.7 MG/DL (0.2-1.0); BLOOD UREA NITROGEN 3 mg/dL (7-18); CALCIUM 9.6 MG/DL (8.5-10.1); CARBON DIOXIDE 28 MMOL/L (21-32); CHLORIDE 98 MMOL/L (98-107); CREATININE 0.8 MG/DL (0.55-1.30); POTASSIUM 4.2 MMOL/L (3.5-5.1); SODIUM 135 MMOL/L (136-145)
[2019-09-07 12:00] VITALS: BP 117/83
--- NOTE | 2019-09-07 15:10 | General Surgery Progress Note ---
General Surgery-Progress Note Subjective Procedure Performed uterine fibroid embolization Symptoms: improved, tolerating diet, voiding well, passing flatus, BM Objective Last 24 Hour Vital Signs Date Time Temp Pulse Resp B/P (MAP) Pulse Ox O2 Delivery O2 Flow Rate FiO2 09/07/19 13:11 98.2 09/07/19 12:00 98.3 116 20 117/83 (94) 98 09/07/19 09:00 Room Air 09/07/19 08:00 98.2 105 20 95/58 (70) 96 09/07/19 04:00 99.9 102 20 101/65 (77) 97 09/07/19 00:00 99.2 107 20 95/65 (75) 96 09/06/19 21:00 Room Air 09/06/19 20:00 98.8 118 20 113/74 (87) 99 09/06/19 16:00 99.3 114 20 107/72 (84) 100 I&O Intake and Output 09/06/19 09/07/19 19:00 07:00 Intake Total 400 ml 3100 ml Balance 400 ml 3100 ml Intake Oral 400 ml 1600 ml IV Total 1500 ml # Voids 3 7 # Bowel Movements 1 Dressing: dry Wound: clean Drains: none Cardiovascular: RSR Respiratory: clear Abdomen: non-tender, present bowel sounds Extremities: no edema, no tenderness, no cyanosis Laboratory Tests Test 09/07/19 06:45 White Blood Count 21.9 K/UL (4.8-10.8) H Red Blood Count 3.56 M/UL (4.20-5.40) L Hemoglobin 10.7 G/DL (12.0-16.0) L Hematocrit 33.6 % (37.0-47.0) L Mean Corpuscular Volume 94 FL (80-99) Mean Corpuscular Hemoglobin 30.0 PG (27.0-31.0) Mean Corpuscular Hemoglobin Concent 31.8 G/DL (32.0-36.0) L Red Cell Distribution Width 12.6 % (11.6-14.8) Platelet Count 281 K/UL (150-450) Mean Platelet Volume 8.0 FL (6.5-10.1) Neutrophils (%) (Auto) % (45.0-75.0) Lymphocytes (%) (Auto) % (20.0-45.0) Monocytes (%) (Auto) % (1.0-10.0) Eosinophils (%) (Auto) % (0.0-3.0) Basophils (%) (Auto) % (0.0-2.0) Differential Total Cells Counted 100 Neutrophils % (Manual) 78 % (45-75) H Lymphocytes % (Manual) 14 % (20-45) L Monocytes % (Manual) 8 % (1-10) Eosinophils % (Manual) 0 % (0-3) Basophils % (Manual) 0 % (0-2) Band Neutrophils 0 % (0-8) Platelet Estimate Adequate Platelet Morphology Normal Polychromasia 1+ Hypochromasia 1+ Sodium Level 135 MMOL/L (136-145) L Potassium Level 4.2 MMOL/L (3.5-5.1) Chloride Level 98 MMOL/L (98-107) Carbon Dioxide Level 28 MMOL/L (21-32) Anion Gap 9 mmol/L (5-15) Blood Urea Nitrogen 3 mg/dL (7-18) L Creatinine 0.8 MG/DL (0.55-1.30) Estimat Glomerular Filtration Rate > 60 mL/min (>60) Glucose Level 201 MG/DL (74-106) H Calcium Level 9.6 MG/DL (8.5-10.1) Total Bilirubin 0.7 MG/DL (0.2-1.0) Aspartate Amino Transf (AST/SGOT) 17 U/L (15-37) Alanine Aminotransferase (ALT/SGPT) 19 U/L (12-78) Alkaline Phosphatase 101 U/L (46-116) Total Protein 7.6 G/DL (6.4-8.2) Albumin 2.7 G/DL (3.4-5.0) L Globulin 4.9 g/dL Albumin/Globulin Ratio 0.6 (1.0-2.7) L Plan Additional Comments wbc trending down. blood cultures negative. anticipate am discharge Casey Jaeger MD Sep 07, 2019 15:10
[2019-09-07 16:00] VITALS: BP 109/70
[2019-09-07] MEDS ORDERED: Potassium Chloride 20 MEQ in Dextrose 5%/Lactated Ringer's 1,000 ML IV SCH (19:00)
--- NOTE | 2019-09-07 19:30 | NUR ---
NURSE NOTES: Received report from Olinda WHITLOCK. Rounding is done. Patient is a/ox4. Dined pain at this time. No any distress noted. IV site is intact and iv fluid is running. Surgical Dressing is c/d/i. Bed is on alarm, locked, and lowest position. Call light within reach. Will continue to monitor.
--- NOTE | 2019-09-07 19:50 | NUR ---
HAND-OFF: Report given to Halle WHITLOCK, pt in stable condition. - During my shift pt was able to ambulate around the unit with steady gait. - pt was able to tolerate her diet with no n/v. - per MD request called to inform that pt has a small BM. also requested if patient can be heplock since pts is able to tolerate diet ok. per MD ok d/c fluids. - incoming nurse is aware of the above.
[2019-09-07 20:00] VITALS: BP 121/71
[2019-09-08] VITALS: BP 102/67
[2019-09-08 04:00] VITALS: BP 108/70
[2019-09-08] MEDS: Zoysn 3.37gm in NS 100ML IVPB SCH (05:45)
[2019-09-08 06:13] LABS: BASOPHILS % (AUTO) 0.8 % (0.0-2.0); EOSINOPHILS % (AUTO) 1.3 % (0.0-3.0); HEMATOCRIT 30.5 % (37.0-47.0); HEMOGLOBIN 9.8 G/DL (12.0-16.0); LYMPHOCYTES % (AUTO) 17.3 % (20.0-45.0); MEAN CORPUSCULAR VOLUME 94 FL (80-99); NEUTROPHILS % (AUTO) 74.7 % (45.0-75.0); PLATELET COUNT 266 K/UL (150-450); RED BLOOD COUNT 3.25 M/UL (4.20-5.40); RED CELL DISTRIBUTION WIDTH 11.9 % (11.6-14.8); WHITE BLOOD COUNT 14.6 K/UL (4.8-10.8)
[2019-09-08 06:45] LABS: ALANINE AMINOTRANSFERASE 26 U/L (12-78); ALBUMIN 2.4 G/DL (3.4-5.0); ALBUMIN/GLOBULIN RATIO 0.5 (1.0-2.7); ALKALINE PHOSPHATASE 148 U/L (46-116); ANION GAP 6 mmol/L (5-15); ASPARTATE AMINO TRANSFERASE 22 U/L (15-37); BILIRUBIN,TOTAL 0.6 MG/DL (0.2-1.0); BLOOD UREA NITROGEN 3 mg/dL (7-18); CALCIUM 9.3 MG/DL (8.5-10.1); CARBON DIOXIDE 30 MMOL/L (21-32); CHLORIDE 100 MMOL/L (98-107); CREATININE 0.9 MG/DL (0.55-1.30); POTASSIUM 4.6 MMOL/L (3.5-5.1); SODIUM 135 MMOL/L (136-145)
--- NOTE | 2019-09-08 07:30 | NUR ---
HAND-OFF: Report given to Mary Beth WHITLOCK. Patient in stable condition.
[2019-09-08 08:00] VITALS: BP 112/75
--- NOTE | 2019-09-08 08:07 | NUR ---
NURSE NOTES: Patient alert x4; on room air, no sing of distress and shortness of breath; Incentive Spirometer at the bed side; no sing of chest pain; IV Left For-Arm Zosyn running; patient is ambulatory steady gait, MD Heide PLATA'ed patient to take shower; side rails up x2, breaks engaged, bed lowest position; call light within reach; will keep monitoring.
[2019-09-08] MEDS: Docusate 100mg cap ORAL SCH (09:03)
--- NOTE | 2019-09-08 10:13 | Pulmonology Progress Note ---
Subjective Allergies: Coded Allergies: No Known Allergies (Unverified , 09/04/19) All Systems: reviewed and negative except above Subjective no fevers leuk trending down pain controlled with oral analgesics ambulates tolerates diet, had BM Objective Last 24 Hour Vital Signs Date Time Temp Pulse Resp B/P (MAP) Pulse Ox O2 Delivery O2 Flow Rate FiO2 09/08/19 08:00 97.3 109 18 112/75 (87) 95 09/08/19 04:00 97.3 98 18 108/70 (83) 98 09/08/19 03:44 Room Air 09/08/19 00:00 99.1 104 18 102/67 (79) 95 09/07/19 21:00 Room Air 09/07/19 20:00 99.9 109 19 121/71 (88) 97 09/07/19 18:10 98.3 09/07/19 16:00 98.3 98 18 109/70 (83) 99 09/07/19 12:00 98.3 116 20 117/83 (94) 98 Intake and Output 09/07/19 09/08/19 19:00 07:00 Intake Total 3000 ml 110.0 ml Balance 3000 ml 110.0 ml Intake Oral 3000 ml IV Total 110.0 ml # Voids 3 # Bowel Movements 1 2 Objective General Appearance: no apparent distress Lines, tubes and drains: peripheral HEENT: normocephalic, atraumatic, anicteric, mucous membranes moist, PERRL Neck: non-tender, supple Respiratory/Chest: chest wall non-tender, lungs clear, no respiratory distress , no accessory muscle use Cardiovascular/Chest: normal peripheral pulses, normal rate Abdomen: normal bowel sounds , NT/ND Extremities: normal range of motion, non-tender, no calf tenderness, normal capillary refill 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 grossly normal, no motor/sensory deficits, alert, oriented x 3, responsive Musculoskeletal: normal muscle bulk Laboratory Tests 09/08/19 05:35: White Blood Count 14.6H, Red Blood Count 3.25L, Hemoglobin 9.8L, Hematocrit 30.5L, Mean Corpuscular Volume 94, Mean Corpuscular Hemoglobin 30.2, Mean Corpuscular Hemoglobin Concent 32.2, Red Cell Distribution Width 11.9, Platelet Count 266, Mean Platelet Volume 7.4, Neutrophils (%) (Auto) 74.7, Lymphocytes (% ) (Auto) 17.3L, Monocytes (%) (Auto) 6.0, Eosinophils (%) (Auto) 1.3, Basophils (%) (Auto) 0.8, Sodium Level 135L, Potassium Level 4.6, Chloride Level 100, Carbon Dioxide Level 30, Anion Gap 6, Blood Urea Nitrogen 3L, Creatinine 0.9, Estimat Glomerular Filtration Rate > 60, Glucose Level 215H, Calcium Level 9.3, Total Bilirubin 0.6, Aspartate Amino Transf (AST/SGOT) 22, Alanine Aminotransferase (ALT/SGPT) 26, Alkaline Phosphatase 148H, Total Protein 7.2, Albumin 2.4L, Globulin 4.8, Albumin/Globulin Ratio 0.5L Current Medications Medications (Trade) Dose Ordered Sig/Dc Route PRN Reason Start Time Stop Time Status Last Admin Dose Admin Acetaminophen (Tylenol) 650 mg Q4H PRN ORAL Temp >100.5 09/04/19 23:30 10/04/19 23:29 09/06/19 06:29 Bisacodyl (Dulcolax) 5 mg DAILYPRN PRN ORAL Constipation 09/05/19 16:15 12/04/19 16:14 09/07/19 17:39 Bisacodyl (Dulcolax) 10 mg DAILYPRN PRN RECTAL Constipation 09/05/19 16:15 12/04/19 16:14 09/07/19 15:08 Docusate Sodium (Colace) 100 mg TWICE A DAY ORAL 09/05/19 18:00 10/05/19 17:59 09/08/19 09:03 Docusate Sodium (Colace) 200 mg Q8H PRN ORAL Constipation 09/04/19 20:15 10/04/19 20:14 09/04/19 23:48 Hydromorphone HCl (Dilaudid) 1 mg Q2H PRN IVP moderate pain 09/06/19 12:30 09/13/19 12:29 Hydromorphone HCl (Dilaudid) 2 mg Q2H PRN IVP Severe Pain (Pain Scale 7-10) 09/06/19 12:30 09/11/19 17:59 Ondansetron HCl (Zofran) 4 mg Q6H PRN IVP Nausea & Vomiting 09/04/19 18:00 7/11/20 17:59 Oxycodone/ Acetaminophen (Percocet 10/325) 1 tab Q3H PRN ORAL pain 09/06/19 12:30 09/13/19 12:29 09/08/19 09:08 Piperacillin Sod/ Tazobactam Sod 3.375 gm/Sodium Chloride 110 ml @ 27.5 mls/hr EVERY 8 HOURS IVPB 09/04/19 22:00 09/09/19 21:59 09/08/19 05:45 Assessment/Plan Assessment/Plan ASSESSMENT Intractable abdominal pain s/p recent uterine artery embolization Uterine fibroids Leukocytosis Constipation Anemia PLAN OF CARE MS floor s/p IVF empiric abx BCX NGTD still leuk but with sign improvement , fevers resolved CT scan A/P on admission stable soft diet, tolerates had BM voiding w/out difficulties ambulates pain management with oral analgesics, controlled IS at the bedside Hgb down to 9.8, venofer x 1 today and home on oral iron supportive care dc plan as per surgeon recs surgeon cleared for dc dc after Venofer infusion case discussed and evaluated by supervising physician Billie Potter NP Sep 08, 2019 10:13
--- NOTE | 2019-09-08 10:49 | NUR ---
NURSE NOTES: WERO Wise communicated me with the plan to give Venofer and discharge patient with Iron tab; WERO Wise wants me to communicate MD James regarding the plan; I called MD Jaeger office and spoke to Nurse, Liliana; Nurse Liliana called back and said OK for the plan to give Venofer and discharge with Iron. WERO Wise notified.
[2019-09-08 12:00] VITALS: BP 115/77
[2019-09-08] MEDS ORDERED: Iron Sucrose 100 MG in NS 55 ML IV ONE (13:00)
[2019-09-08] MEDS ORDERED: FERROUS SU325 MG/5 M GT (14:20)
--- NOTE | 2019-09-08 15:20 | NUR ---
NURSE NOTES: Patient discharged to home; left the floor ambulating accompanied by primary nurse; patient's IV access and name tag removed upon discharge; belonging lists checked and signed by patient and primary nurse; printed material given to patient; original medication prescription given to patient; patient is stable upon discharge.
--- NOTE | 2019-09-08 15:36 | NUR ---
*-* INSURANCE *-* UPDATED CLINICALS HAVE BEEN FAXED TO: CARISSA ALLISON AUTH#[id number] [phone] F:[phone]
--- NOTE | 2019-09-09 07:49 | Discharge Summary ---
Discharge Summary Discharge Summary _ DATE OF ADMISSION: 09/04/2019 DATE OF DISCHARGE: 09/08/2019 DISCHARGED BY: REASON FOR ADMISSION: 39 years old female with past medical history of uterine fibroids, undergone uterine embolization on 09/01. Patient presented to emergency department with intractable abdominal pain and low back pain. She reported taking oral analgesic without relief. Patient also reported constipation. No fever or chills. No dysuria, pyuria or flank pain. Upon evaluation patient was found to have WBC 18.1, stable hemoglobin, hematocrit and platelet count. Lactic acid 1.8. Urinalysis revealed borderline pyuria and only occasional bacteria. Urine test was negative. CT scan of the abdomen pelvis revealed findings consistent with recent embolization. In emergency department patient was medicated for pain, started on the IV fluids , received antiemetics, and admitted to medical surgical floor for further management. CONSULTANTS: INSTRUCTIONAL [employer]ULTANT Surgeon Dr. Tamez [facility] COURSE: Patient admitted to medical surgical floor and started on the IV fluids and empiric antibiotics. Blood culture came back negative. Patient initially was on the clear liquid diet. Bowel regimen instituted. Pain management was addressed. Incentive spirometry was encouraged while in the bed. Ambulation out of bed was encouraged as tolerated. Leukocytosis trending down. Fevers resolved. Patient to complete oral antibiotic at home as given by surgeon postoperatively. Analgesics were switched to oral route. Pain was controlled with oral analgesic. Diet was advanced to soft. Patient was able to tolerate diet. Patient successfully had bowel movement. Patient noted to have anemia with globin 9.8. Patient received oral iron prescription upon discharge for 2 weeks. Patient clinically stabilized and was ready for discharge. FINAL DIAGNOSES: Intractable abdominal pain Status post recent uterine artery embolization Uterine fibroids Leukocytosis-improved Constipation-resolved Anemia DISCHARGE MEDICATIONS: See Medication Reconciliation list. DISCHARGE INSTRUCTIONS: Patient was discharged home. Follow-up with surgeon as outpatient as advised by surgeon. Billie Potter NP Sep 09, 2019 07:49
== END 2019-09-08 15:15 | disposition home or self-care (01) | DRG 948 ==
LOC: EMR 13:40 → 3E 14:13 → EDBEDREQ 14:17
DX: G89.18 Other acute postprocedural pain (principal); D25.9 Leiomyoma of uterus, unspecified; K59.00 Constipation, unspecified; D64.9 Anemia, unspecified
CPT/HCPCS: 36415; 74175; 80048; 80053; 81003; 81025; 82248; 83605; 85007; 85025; 87040; 96361; 96365; 96375; 99285; J2405; J7030